=== PATIENT | male | born 1995 | race Caucasian/White ===

== ENCOUNTER 2019-06-19 19:43 | Emergency (ER) | payer OTHER ==
[~2019-06-19] VITALS: Ht 167.6 cm; Wt 70.3 kg
== END 2019-06-19 23:00 | disposition home or self-care (01) ==
LOC: ER 19:43
DX: M54.2 Cervicalgia (principal); M62.830 Muscle spasm of back

== ENCOUNTER 2021-04-18 05:42 | Emergency (ER) | payer OTHER ==
[~2021-04-18] VITALS: Ht 170.2 cm; Wt 70.3 kg
[2021-04-18] MEDS ORDERED: MEDROLPACK PO (07:36)
[2021-04-18] MEDS ORDERED: NORFLEX100MG PO (07:36)
[2021-04-18] MEDS ORDERED: BENADRYL25 MG PO (07:36)
== END 2021-04-18 07:50 | disposition home or self-care (01) ==
LOC: ER 05:42
DX: R07.89 Other chest pain (principal); M54.50 Low back pain, unspecified; T78.40XA Allergy, unspecified, initial encounter